=== PATIENT | male | born 1945 | race Caucasian/White ===

== ENCOUNTER 2020-01-05 08:23 | Outpatient (CLI) | payer MEDICARE, OTHER, SELFPAY ==
--- NOTE | 2020-01-05 08:45 | USCV_ITS ---
Tj Sheets Age: 74 Gender: M : 1945 Exam Date: 01/05/2020 08:45 Ordering Phys: Last Davalos MD ([email or web address]) Technologist: Torito Canales Exam Location: [facility] [place] Indication: SCEENING HISTORY: Diameter (cm) AP x Transverse x Length Velocity (cm/s) Waveform Prox Aorta: 2.35 x 2.13 x 71.10 Biphasic Mid Aorta: 1.91 x 2.13 x 67.80 Biphasic Distal Aorta: 1.81 x 1.75 x 71.90 Biphasic Right Iliac Prox: 1.24 x 1.07 x 51.00 Biphasic Left Iliac Prox: 1.05 x 1.36 x 59.50 Biphasic Stent Prox Landing x x Aneurysmal Sac Max x x Lt Lat Sac Dim Rt Lat Sac Dim Stent Dist Landing x x Right Iliac Stent x x Left Iliac Stent x x Right Renal Art Left Renal Art FINDINGS: Mild diffuse plaques in the abdominal aorta. Normal abdominal aortic dimensions. Normal Doppler flow velocities CONCLUSIONS No evidence of aneurysm in the abdominal aorta, based on the above findings Mild diffuse plaques in the abdominal aorta Dr Last Davalos MD [facility] (Electronically Signed) Final Date: 05 January 2020 20:23 S
== END 2020-01-05 08:24 | disposition home or self-care (01) ==
LOC: RAD 08:28
PROVIDERS: PCP Family Medicine; Visit Provider Internal Medicine Cardiovascular Disease
DX: Z84.89 Family history of other specified conditions (principal); I70.0 Atherosclerosis of aorta
CPT/HCPCS: 93978

== ENCOUNTER → 2021-04-02 08:15 | Outpatient (BNVA) | payer MEDICARE, SELFPAY | PROVIDERS: PCP Family Medicine; Visit Provider Urology | DX: R31.9 Hematuria, unspecified (principal) | CPT/HCPCS: 81003; 87086; 88112 ==

== ENCOUNTER 2021-04-30 12:39 | Outpatient (CLI) | payer MEDICARE, OTHER, SELFPAY ==
--- NOTE | 2021-04-30 12:45 | CT_ITS ---
WS: [id number] CT ABDOMEN PELVIS TECHNIQUE: Noncontrast CT of the abdomen and contrast-enhanced CT of the abdomen and pelvis with kentrell nal and sagittal reformatted images. CLINICAL INFORMATION: GROSS HEMATURIA COMPARISON: None. DLP: 4355.[address] scans at [facility] use at least one of these dose optimization techniques: automated e xposure control; mA and/or kV adjustment per patient size (includes targeted exams where dose is matc hed to clinical indication); or iterative reconstruction. FINDINGS: Bilateral renal cortical atrophy. Bilateral perinephric edema can be seen with renal insufficiency. A drenal glands are normal. Right peripelvic renal cyst measuring 6.1 x 4.7 cm. Two calculi in the righ t UVJ measuring 5 mm with adjacent calculus measuring 2.5 mm. Mild induration and inflammatory strand ing about the right ureter with minimal ureterectasis. No obstructing left renal or ureteral calculi. Normal excretion on the delayed imaging bilaterally. N ormal bilateral ureteral excretion. Mild ureterectasis distal third right ureter. Small left renal cy st measuring 11 mm. Lung bases are well aerated. Subsegmental atelectasis in the lung bases. Mild diffuse fatty infiltrat ion of the liver. Postoperative changes GE junction. Mild fatty atrophy of the pancreas. Gallbladder is contracted. Normal portal vein and splenic vein. No abdominal lymphadenopathy. No pelvic lymphade nopathy. No inguinal lymphadenopathy. Sigmoid diverticulosis. No evidence of acute diverticulitis. CT/CT abdomen pelvis wo/w [id number] IMPRESSION: 1. Bilateral renal cortical atrophy. 2. Prominent right peripelvic renal cyst measuring 4.7 x 6.1 CM. 3. Obstructing right distal UVJ calculi measuring 5 mm and 2.5 mm. Mild ureter ectasis distal third right ureter although with relatively normal renal and ure teral excretion. 4. Normal bladder. 5. Sigmoid diverticulosis. No evidence of acute diverticulitis. 6. Postoperative changes GE junction.
[2021-04-30 13:33] LABS: Blood Urea Nitrogen 17 mg/dL (8-23)
[2021-04-30] MEDS: iohexol 350 mg/mL 100 mL Btl IV (13:55)
== END 2021-04-30 12:40 | disposition home or self-care (01) ==
LOC: RAD 12:43
PROVIDERS: PCP Family Medicine; Visit Provider Urology
DX: R31.0 Gross hematuria (principal); N26.1 Atrophy of kidney (terminal); N28.1 Cyst of kidney, acquired; K57.30 Diverticulosis of large intestine without perforation or abscess without bleeding
CPT/HCPCS: 74178; 81003; 82565; 84520

== ENCOUNTER 2021-05-13 14:36 | Outpatient (CLI) | payer MEDICARE, OTHER, SELFPAY ==
--- NOTE | 2021-05-13 14:45 | XR_ITS ---
WS: [id number] Exam: XR KUB [id number] Date/Time of Exam: 05/13/2021 2:45 PM Reason For Exam: UROLITHIASIS No bowel obstruction or free air. 3 mm calcification superimposes the lower pole of the left kidney a nd may represent a renal stone. No sign of organ enlargement. Advanced DJD of the thoracic and lumbar spine with levoscoliosis. Bony changes in the spine and pelvis suggesting diffuse idiopathic skeleta l hyperostosis. Nonspecific small pelvic calcifications. XR/XR KUB 51479 IMPRESSION: 1. No acute finding. 2. 3 mm calcification superimposing the region of the right kidney that may rep resent a renal stone.
== END 2021-05-13 14:37 | disposition home or self-care (01) ==
LOC: RAD 14:40
PROVIDERS: PCP Family Medicine; Visit Provider Urology
DX: N20.9 Urinary calculus, unspecified (principal)
CPT/HCPCS: 74018; 81003

== ENCOUNTER 2021-06-02 08:28 | Outpatient (CLI) | payer MEDICARE, OTHER, SELFPAY ==
--- NOTE | 2021-06-02 08:43 | XR_ITS ---
WS: [id number] Exam: XR KUB [id number] Date/Time of Exam: 06/02/2021 8:46 AM Reason For Exam: UROLITHIASIS Exam: XR KUB [id number] Date/Time of Exam: 06/02/2021 8:46 AM Reason For Exam: UROLITHIASIS No sign of bowel obstruction or free air. No calcifications noted in the region of the kidneys. No si gn of organ enlargement. Bony changes in the lumbar spine and pelvis suggesting idiopathic skeletal h yperostosis. XR/XR KUB [id number] IMPRESSION: 1. No calcifications seen in the region of the kidneys. No acute abdominal proc ess.
== END 2021-06-02 08:29 | disposition home or self-care (01) ==
LOC: RAD 08:31
PROVIDERS: PCP Family Medicine; Visit Provider Urology
DX: N20.9 Urinary calculus, unspecified (principal); Z20.822 Contact with and (suspected) exposure to COVID-19
CPT/HCPCS: 74018; 81003; 87635

== ENCOUNTER 2021-06-05 11:10 | Day surgery (SDC) | payer MEDICARE, OTHER, SELFPAY ==
--- NOTE | 2021-06-05 | SCC_ITS ---
Procedure Done: 1. Cystoscopy, right retrograde ureteropyelogram 2. Right ureteroscopy, laser lithotripsy, stent (6 [place] by 28 cm double- pigtail without string 69 seconds of fluoroscopic guidance, for a cumulative dose of 29.59 mGy, was provided to Dr. Marquez by the radiology department. C-arm images of the abdomen were saved for the patient's permanent record. [facility]
--- NOTE | 2021-06-05 11:37 | XR_ITS ---
WS: [id number] Exam: XR KUB [id number] Date/Time of Exam: 06/05/2021 11:37 AM Reason For Exam: Preop right ureteroscopy No bowel obstruction or free air. No obvious calcifications noted in the region of the kidneys. Sana manrique DJD of the lower thoracic and lumbar spine. Diffuse idiopathic skeletal hyperostosis. XR/XR KUB [id number] IMPRESSION: 1. No acute abdominal process. 2. Other chronic findings as above.
--- NOTE | 2021-06-05 11:45 | ECG_ITS ---
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 Measurements Intervals [place] Rate: 97 P: LA: QRS: 0 QRSD: 89 T: 43 QT: 327 QTc: 415 Interpretive Statements ATRIAL FIBRILLATION ABNORMAL RHYTHM ECG No previous ECG available for comparison Electronically Signed On 06-07-2021 7:49:27 JAVA SOFTWARE by Damion Huizar M.D. [email or web address]
[2021-06-05 12:19] VITALS: BMI 36.0
[2021-06-05] MEDS: sodium chloride 0.9% 1,000 ML 30 ML IV (12:54)
--- NOTE | 2021-06-05 12:56 | ANES.PREANE2 ---
Pre-Anesthetic Assessment Pre-Anesthetic Assessment: Height/Weight: Height 1.78 m Weight 113.852 kg Preop Diagnosis: Right distal ureteral stones Proposed Procedure: Operation Date: 06/05/21 13:10 Proposed Procedures p Laser Lithotripsy 00597 [id number] N20.9(Not Applicable) - Tyler Marquez MD s Cystoscopy(Not Applicable) - Tyler Marquez MD s Retrograde Pyelogram(Right) - MD frederick Chakraborty Ureteroscopy(Not Applicable) - Tyler Marquez MD s Ureteral Stent Placement(Not Applicable) - Tyler Marquez MD Was Beta Lisa taken within 24 hours: Yes Was Clonidine taken within 24 hours: N/A Last intake: Intake Last Liquid Date 06/05/21 Last Liquid Time 07:30 Last Solid Date 06/04/21 Last Solid Time 22:00 Social: Social History: No alcohol and No tobacco Exam: Pre-Anes Outpt Exam: alert, oriented x 3, clear to auscultation bilaterally and regular rate & rhythm Airway: Submandibular: WNL Cervical ROM: WNL MP: 3 Pulmonary: Pulmonary: COPD CV/HEM: CV/HEM: Afib, Arrythmia and HTN : : Chronic renal Insufficiency Hepatic: Hepatic: None reported GI: GI: GERD Metabolic: Metabolic: Morbid obesity Musc/skel: Musc/skel: OA/DJD Neuropsych: Neuropsych: Anxiety PFSH Anesthesia PFSH: Medical History Atrial fibrillation Hernandez esophagus Chronic back pain CVA (cerebral vascular accident) Family history of aneurysm Gross hematuria History of GI bleed Hypertension Sleep apnea Ulnar nerve disease Surgical History History of cataract extraction History of hernia surgery History of surgery on arm Family History Sister Lung disease CAD (coronary artery disease) Grandfather CAD (coronary artery disease) Father , AT AGE 73 Clotting disorder Mother , AT AGE 84 Dementia Grandmother Cancer Other Atrial fibrillation Family history of premature coronary artery disease Hypertension Social History Alcohol intake: current Alcohol intake frequency: holidays/special occasions only Marital status: / Current occupational status: employed 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
--- NOTE | 2021-06-05 13:03 | SC_ITS ---
WS: [id number] Exam: C-arm FL for Urology Date/Time of Exam: 06/05/2021 1:03 PM Reason For Exam: SURGERY Limited AP C-arm images of the left pelvis and left abdomen are submitted for evaluation. AP image labeled #2 the pelvis demonstrates a limited right retrograde pyelogram. There are 2 promine nt filling defects in the distal right ureter near the ureteroscope that likely represent obstructing tandem stones in the distal right ureter. A small amount of contrast is seen in the urinary bladder. Additional images demonstrate a right ureteral catheter appearing to extend in the region of the rig ht kidney. SC/C-arm FL for Urology IMPRESSION: 1. Limited right retrograde pyelogram demonstrating 2 filling defects in the di stal right ureter that probably represent nonobstructing tandem stones.
--- NOTE | 2021-06-05 13:05 | P.HPUD_ITS ---
Surgery/Procedure H&P Update DATE OF PROCEDURE: June 05, 2021 DATE H&P PERFORMED: 06/02/21 H&P UPDATE INFORMATION: I have reviewed H&P completed within last 30 days, I have examined patient prior to procedure, No changes to prior documentation and H&P is in [facility] [place] on date indicated CHANGES TO PREVIOUS DOCUMENTATION: KUB prior to the procedure shows the stones in the same position. PREOP DIAGNOSIS: Right distal ureteral stones PLANNED PROCEDURE: Operation Date: 06/05/21 13:10 Proposed Procedures p Laser Lithotripsy 77540 [id number] N20.9(Not Applicable) - Tyler Marquez MD s Cystoscopy(Not Applicable) - MD frederick Chakraborty Retrograde Pyelogram(Right) - MD frederick Chakraborty Ureteroscopy(Not Applicable) - MD frederick Chakraborty Ureteral Stent Placement(Not Applicable) - Tyler Marquez MD
[2021-06-05 14:35] VITALS: BP 128/94; PULSE 106; RESP 19; TEMP 37.1; O2SAT 98
[2021-06-05 14:40] VITALS: BP 123/89; PULSE 100; RESP 20; O2SAT 94
[2021-06-05 14:45] VITALS: BP 105/68; PULSE 99; RESP 18; O2SAT 94
[2021-06-05 14:50] VITALS: BP 113/82; PULSE 92; RESP 18; TEMP 36.6; O2SAT 94
[2021-06-05 14:58] VITALS: BP 138/98; PULSE 99; RESP 18; TEMP 36.1; O2SAT 93
[2021-06-05 15:15] VITALS: BP 140/108; PULSE 80; RESP 18; TEMP 36.1; O2SAT 95
--- NOTE | 2021-06-05 16:02 | PM.OP ---
Operative Report Date of procedure: June 05, 2021 Pre-op Diagnosis: Right distal ureteral stones Post-op diagnosis: same Procedure Done: 1. Cystoscopy, right retrograde ureteropyelogram 2. Right ureteroscopy, laser lithotripsy, stent (6 [place] by 28 cm double-pigtail without string Implants: Right ureteral stent Specimens removed/disposition: Many small stone fragments Pathology: Stone fragments Surgeon: Alma Anesthesia: General Estimated blood loss: Minimal Urine output: Not measured Complications: None Findings: Stones in the expected position. Significant amount of inflammation where the stones were located. All stones completely removed after fragmentation with 365 ?m laser fiber. Condition: stable Disposition: PACU Brief History: Mr. Sheets is a very pleasant 75-year-old white male with a history of urolithiasis having passed multiple stones over the years. Recently diagnosed with 2 ureteral calculi in the distal ureter the larger being the more lead to fragment. He was given a significant amount of time to try and pass the stones but failed to do so. Ultimately due to concern for potential impact of protracted ureteral obstruction it was decided to proceed with surgical intervention with endoscopy selected. Procedure: After routine preoperative evaluation examination and obtaining of informed consent he was taken to the operating suite on 06/05/2021 where general anesthesia was administered without difficulty after appropriate timeout was performed, SCDs confirmed to be functioning, preoperative antibiotics administered, beta-margaret protocol confirmed. Prepped and draped in the usual sterile fashion in dorsolithotomy position paying careful attention to avoiding pressure points. 21 [place] cystoscope with 30 degree lens was introduced into the urethra. There was a large caliber stricture in the bulbar urethra which the scope could be manipulated beyond. Scope was passed into the bladder. The left ureteral orifice was normal the right ureteral orifice showed inflammatory changes consistent with a stone in the intramural tunnel. An 8 [place] cone-tip catheter was intubated into the right ureteral orifice for RIGHT RETROGRADE URETEROPYELOGRAM: 2 filling defects identified in the distal ureter and the intramural tunnel area as expected. The ureter proximal that showed some moderate dilation. No other more proximal stones were identified. A flexible tip guidewire was then attempted to be passed beyond the stones but did not easily go. An open-ended ureteral catheter was then passed over the guidewire but did not allow the the wire to pass any easier. A Glidewire was then passed through the open ureteral catheter and easily bypassed the stones. The wire was passed into the renal pelvis area and the open-ended ureteral catheter was advanced over the guidewire to the mid ureter. The Glidewire was removed and replaced with a routine flexible tip guidewire and the open-ended ureteral catheter removed. The very distal aspect of the ureter beyond the stones was dilated with a 15 [place] 4 cm balloon to facilitate scope passage. The wire was then secured to the drapes as a safety wire. A 7.5 [place] offset semirigid ureteroscope was then advanced next to the guidewire up the left ureter where the larger stone was encountered and fragmented with a 365 ?m thulium superpulse laser fiber into small enough fragments that were flushed and grasped and removed from the distal ureter. The second stone proximal to that stone was also encountered as expected and treated the same way with the same result. Inspection of the distal ureter showed a significant amount of inflammatory changes as expected given the duration of the stones and for that reason it was decided to leave a stent indwelling. Cystoscope was then backloaded over the guidewire and a 6 [place] by 28 cm double-pigtail stent without string attached was then passed over the guidewire through the cystoscope into appropriate position as confirmed via fluoroscopy and cystoscopy. Bladder was drained and all the stone fragments which had been dropped into the bladder upon removal of the ureter were flushed free from the bladder. Complete removal of the fragments was confirmed. The stent was also proved to be draining well. The urethra was carefully inspected and it was felt that the dilation of the scope was atraumatic enough to allow avoiding a Glynn catheter. Procedure was completed he tolerated the procedure well without complications and was awakened in the operating room and returned to the recovery room in stable condition. PLANS: 1. Anticipate discharge from outpatient surgery [facility]. 2. Follow-up in 2 weeks for cystoscopy and stent removal. Based on his driving schedule. (Over the road) he may want to push that back longer and will let us know so we can make arrangements
--- NOTE | 2021-06-05 18:01 | SUR.PHASEII ---
[address] conklin regarding home rx--when to resume eliquis and pt voided a small amt of bloody urine and order given to bladder scan pt 1730 bladder scanned for 95cc and number given to beatriz shirley rn(or charge) to inform dr conklin and she verbalized understanding
--- NOTE | 2021-06-05 19:55 | ANE.PACU2 ---
Inpatient post-anesthesia follow up: Airway intact: Yes Vital signs: Temperature 97 F Pulse Rate 80 Respiratory Rate 18 Blood Pressure 140/108 Pulse Oximetry 95 Oxygen Delivery Me thod Room Air Oxygen Flow Rate 8 Fraction of Inspir ed Oxygen Hydration adequate: Yes Nausea and vomiting: No Pain level: 3 Mental status: Baseline
[2021-06-10 23:08] LABS: Stone Source RIGHT URETER
== END 2021-06-05 17:38 | disposition home or self-care (01) ==
PROVIDERS: PCP Family Medicine; Visit Provider Urology
PROC: (CPT 52356; principal; 2021-06-05 13:10)
PROC: 0TJB8ZZ Inspection of Bladder, Via Natural or Artificial Opening Endoscopic (ICD-10-PCS; CPT 52000; 2021-06-05 13:10)
PROC: (CPT 74420; 2021-06-05 13:10)
PROC: 0TJ98ZZ Inspection of Ureter, Via Natural or Artificial Opening Endoscopic (ICD-10-PCS; CPT 52351; 2021-06-05 13:10)
PROC: (CPT 50605; 2021-06-05 13:10)
DX: N20.1 Calculus of ureter (principal); I10 Essential (primary) hypertension; Z79.02 Long term (current) use of antithrombotics/antiplatelets; Z86.73 Personal history of transient ischemic attack (TIA), and cerebral infarction without residual deficits; Z88.0 Allergy status to penicillin
CPT/HCPCS: 52356; 74018; 76000; 82365; 88300; 93005; C2625; J1100; J2405; J2704; J2710; J3010; J3490; J7030

== ENCOUNTER → 2021-07-09 15:44 | Outpatient (BNVA) | payer MEDICARE, OTHER, SELFPAY | PROVIDERS: PCP Family Medicine; Visit Provider Urology | DX: N20.9 Urinary calculus, unspecified (principal); Z96.0 Presence of urogenital implants | CPT/HCPCS: 81003 ==

== ENCOUNTER → 2021-12-04 08:11 | Outpatient (BNVA) | payer MEDICARE, OTHER, SELFPAY | PROVIDERS: PCP Family Medicine; Visit Provider Nurse Practitioner | DX: Z79.02 Long term (current) use of antithrombotics/antiplatelets (principal); I48.20 Chronic atrial fibrillation, unspecified; I10 Essential (primary) hypertension | CPT/HCPCS: 80053; 80061; 85025 ==

== ENCOUNTER → 2022-01-06 14:18 | Outpatient (CLI) | payer MEDICARE, OTHER, SELFPAY ==
--- NOTE | 2022-01-06 14:30 | XR_ITS ---
WS: [id number] KUB, AP view, 01/06/2022 Clinical Data: Urolithiasis Comparison: KUB, 06/05/2021. Findings: No abnormal intraabdominal masses are seen. There is no dilatated small bowel or evidence of obstruct ion. There may be a calcification overlying the inferior pole of the right kidney. There is a large amount of fecal material and colon gas which obscured detail over the superior portion of both kidneys. Deg enerative change of the lumbar spine is noted. XR/XR KUB [id number] Impression: Questionable inferior pole right renal calculus.
== END ==
PROVIDERS: PCP Family Medicine; Visit Provider Urology
DX: N20.9 Urinary calculus, unspecified (principal); N40.1 Benign prostatic hyperplasia with lower urinary tract symptoms; N13.8 Other obstructive and reflux uropathy
CPT/HCPCS: 74018; 81003; 99213

== ENCOUNTER → 2022-02-16 13:27 | Outpatient (BNVA) | payer MEDICARE, OTHER, SELFPAY | PROVIDERS: Visit Provider Nurse Practitioner | DX: R73.9 Hyperglycemia, unspecified (principal) | CPT/HCPCS: 83036 ==

== ENCOUNTER → 2022-12-07 11:18 | Outpatient (BNVA) | payer MEDICARE, OTHER, SELFPAY | PROVIDERS: Visit Provider Family Medicine | DX: I10 Essential (primary) hypertension (principal); I63.9 Cerebral infarction, unspecified; I48.91 Unspecified atrial fibrillation; N20.9 Urinary calculus, unspecified; K22.70 Barrett's esophagus without dysplasia; Z13.6 Encounter for screening for cardiovascular disorders | CPT/HCPCS: 80053; 80061; 83036; 84550; 85025 ==

== ENCOUNTER → 2023-04-07 10:07 | Outpatient (BNVA) | payer MEDICARE, OTHER, SELFPAY | PROVIDERS: PCP Family Medicine; Visit Provider Dermatology | DX: D23.72 Other benign neoplasm of skin of left lower limb, including hip (principal); L81.4 Other melanin hyperpigmentation; D18.01 Hemangioma of skin and subcutaneous tissue; D48.5 Neoplasm of uncertain behavior of skin; L57.0 Actinic keratosis | CPT/HCPCS: 11102; 17000; 99203 ==

== ENCOUNTER → 2023-08-09 13:00 | Outpatient (BNVA) | payer MEDICARE, OTHER, SELFPAY | PROVIDERS: PCP Family Medicine; Visit Provider Dermatology | DX: C44.329 Squamous cell carcinoma of skin of other parts of face (principal); L57.0 Actinic keratosis; L72.0 Epidermal cyst; L73.8 Other specified follicular disorders | CPT/HCPCS: 17000; 99213 ==

== ENCOUNTER → 2023-09-28 09:19 | Outpatient (BNVA) | payer MEDICARE, OTHER, SELFPAY | PROVIDERS: PCP Family Medicine; Visit Provider Family Medicine | DX: Z13.6 Encounter for screening for cardiovascular disorders (principal); Z12.5 Encounter for screening for malignant neoplasm of prostate; E03.9 Hypothyroidism, unspecified; I10 Essential (primary) hypertension; I48.20 Chronic atrial fibrillation, unspecified; E11.9 Type 2 diabetes mellitus without complications; I63.19 Cerebral infarction due to embolism of other precerebral artery; G47.33 Obstructive sleep apnea (adult) (pediatric); M19.90 Unspecified osteoarthritis, unspecified site | CPT/HCPCS: 80053; 80061; 82607; 83036; 84443; 84550; 85025 ==

== ENCOUNTER → 2023-12-06 13:02 | Outpatient (BNVA) | payer MEDICARE, OTHER, SELFPAY | PROVIDERS: PCP Family Medicine; Visit Provider Nurse Practitioner Family | DX: L57.0 Actinic keratosis (principal); L21.8 Other seborrheic dermatitis; L73.8 Other specified follicular disorders; S50.911A Unspecified superficial injury of right forearm, initial encounter; X58.XXXA Exposure to other specified factors, initial encounter | CPT/HCPCS: 17000; 99214 ==

== ENCOUNTER → 2024-01-17 14:03 | Outpatient (BNVA) | payer MEDICARE, OTHER, SELFPAY | PROVIDERS: PCP Family Medicine; Visit Provider Nurse Practitioner Family | DX: L21.8 Other seborrheic dermatitis (principal); S50.911A Unspecified superficial injury of right forearm, initial encounter; X58.XXXA Exposure to other specified factors, initial encounter; Z85.828 Personal history of other malignant neoplasm of skin | CPT/HCPCS: 99214 ==

== ENCOUNTER → 2024-05-22 13:17 | Outpatient (BNVA) | payer MEDICARE, OTHER, SELFPAY | PROVIDERS: PCP Family Medicine; Visit Provider Nurse Practitioner Family | DX: L21.8 Other seborrheic dermatitis (principal); L73.8 Other specified follicular disorders; L82.1 Other seborrheic keratosis; Z85.828 Personal history of other malignant neoplasm of skin; L72.0 Epidermal cyst; L57.0 Actinic keratosis | CPT/HCPCS: 10060; 17000; 99213 ==

== ENCOUNTER → 2024-08-04 09:41 | Outpatient (BNVA) | payer MEDICARE, OTHER, SELFPAY | PROVIDERS: PCP Family Medicine; Visit Provider Family Medicine | DX: N39.0 Urinary tract infection, site not specified (principal); I48.20 Chronic atrial fibrillation, unspecified; I63.19 Cerebral infarction due to embolism of other precerebral artery; E11.9 Type 2 diabetes mellitus without complications; I10 Essential (primary) hypertension; Z79.02 Long term (current) use of antithrombotics/antiplatelets; N41.9 Inflammatory disease of prostate, unspecified | CPT/HCPCS: 80053; 80061; 81000; 83036; 85025 ==

== ENCOUNTER → 2024-10-23 13:29 | Outpatient (BNVA) | payer MEDICARE, OTHER, SELFPAY | PROVIDERS: PCP Family Medicine; Visit Provider Nurse Practitioner Family | DX: L98.1 Factitial dermatitis (principal); L82.1 Other seborrheic keratosis; D18.01 Hemangioma of skin and subcutaneous tissue; Z08 Encounter for follow-up examination after completed treatment for malignant neoplasm; Z85.828 Personal history of other malignant neoplasm of skin; L82.0 Inflamed seborrheic keratosis; L29.89 Other pruritus; R20.9 Unspecified disturbances of skin sensation; R20.8 Other disturbances of skin sensation; R23.8 Other skin changes; L53.8 Other specified erythematous conditions; L57.0 Actinic keratosis | CPT/HCPCS: 17000; 17110; 99213 ==

== ENCOUNTER → 2024-10-27 11:34 | Outpatient (BNVA) | payer MEDICARE, OTHER, SELFPAY | PROVIDERS: PCP Family Medicine; Visit Provider Family Medicine | DX: N39.0 Urinary tract infection, site not specified (principal) | CPT/HCPCS: 81000 ==

== ENCOUNTER 2024-11-29 09:35 | Outpatient (CLI) | payer MEDICARE, OTHER, SELFPAY ==
--- NOTE | 2024-11-29 10:00 | CT_ITS ---
WS: [id number] CT lumbar spine wo con* [id number] REASON FOR EXAM: M54.16 - Radiculopathy, lumbar region IV CONTRAST ADMINISTERED: None. TOTAL EXAM DLP: 936.[address] scans at [facility] use at least one of these dose optimization techniques: automated exposure control; mA and/or kV adjustment per patient size (includes targeted exams where dose is matched to clinical indication); or iterative reconstruction. FINDINGS: Mild compression deformities of L1-L3. L1-L2: Mild to moderate narrowing of the disc space. Mild anterolisthesis of L2 in relation to L1. Mild posterior broad-based disc protrusion. Significant symmetric bilateral neural foraminal narrowing. Minimal central stenosis. Significant degenerative hypertrophic arthropathy of the facet joints. L2-L3: Mild narrowing of the disc space. Mild anterolisthesis of L3 in relation to L2. Mild broad-based posterior disc protrusion. Moderate symmetric bilateral neural foraminal narrowing with mild central stenosis. Significant degenerative hypertrophic arthropathy of the facet joints. L3-L4: Mild narrowing of the disc space. Broad-based posterior disc protrusion. Mild central and bilateral foraminal stenosis. L4-L5: Disc space intact and relatively well preserved. Mild to moderate anterolisthesis of L4 on L5. Mild broad-based posterior disc protrusion. Moderate to significant central and mild to moderate bilateral foraminal stenosis. Significant degenerative hypertrophic facet arthropathy. L5-S1: Disc space intact and relatively well preserved. Mild posterior broad- based disc protrusion. Minimal central and mild bilateral foraminal stenosis. No sacral insufficiency fractures. CT/CT lumbar spine wo con* [id number] IMPRESSION: Severe multilevel degenerative spondylosis with central and foraminal stenoses as above.
== END 2024-11-29 09:36 | disposition home or self-care (01) ==
LOC: RAD 09:36
PROVIDERS: PCP Family Medicine; Visit Provider Family Medicine
DX: M54.16 Radiculopathy, lumbar region (principal); M47.896 Other spondylosis, lumbar region; M48.061 Spinal stenosis, lumbar region without neurogenic claudication; M48.56XA Collapsed vertebra, not elsewhere classified, lumbar region, initial encounter for fracture; M43.16 Spondylolisthesis, lumbar region; M51.26 Other intervertebral disc displacement, lumbar region; M51.369 Other intervertebral disc degeneration, lumbar region without mention of lumbar back pain or lower extremity pain; M51.27 Other intervertebral disc displacement, lumbosacral region; M48.07 Spinal stenosis, lumbosacral region
CPT/HCPCS: 72131

== ENCOUNTER → 2025-05-03 10:00 | Outpatient (BNVA) | payer MEDICARE, OTHER, SELFPAY | PROVIDERS: PCP Family Medicine; Visit Provider Family Medicine | DX: E11.9 Type 2 diabetes mellitus without complications (principal) | CPT/HCPCS: 80061; 83036 ==

== ENCOUNTER → 2025-05-08 10:22 | Outpatient (BNVA) | payer MEDICARE, OTHER, SELFPAY | PROVIDERS: PCP Family Medicine; Visit Provider Nurse Practitioner Family | DX: S50.911A Unspecified superficial injury of right forearm, initial encounter (principal); L81.4 Other melanin hyperpigmentation; L57.8 Other skin changes due to chronic exposure to nonionizing radiation; X32.XXXA Exposure to sunlight, initial encounter; D18.01 Hemangioma of skin and subcutaneous tissue; L73.8 Other specified follicular disorders; L82.1 Other seborrheic keratosis; Z08 Encounter for follow-up examination after completed treatment for malignant neoplasm; Z85.828 Personal history of other malignant neoplasm of skin; L57.0 Actinic keratosis | CPT/HCPCS: 17000; 99213 ==

== ENCOUNTER → 2025-05-23 09:35 | Outpatient (BNVA) | payer MEDICARE, OTHER, SELFPAY | PROVIDERS: PCP Family Medicine; Visit Provider Family Medicine | DX: R31.9 Hematuria, unspecified (principal) | CPT/HCPCS: 81003 ==